=== PATIENT | male | born 1995 | race Caucasian/White ===

== ENCOUNTER 2020-11-06 15:36 | Emergency (ER) | payer SELFPAY ==
[2020-11-08 05:11] LABS: HBSAG SCREEN Negative (Negative); HEP A AB, IGM Negative (Negative); HEP B CORE AB, IGM Negative (Negative); HEP C VIRUS AB <0.1 (0.0-0.9)
[2020-11-08 08:14] LABS: HIV SCREEN 4TH GENERATION WRFX Non Reactive (Non Reactive)
== END 2020-11-06 19:00 | disposition home or self-care (01) ==
LOC: ER1 15:36
PROVIDERS: Emergency Medicine
DX: Z79.891 Long term (current) use of opiate analgesic (principal); S61.235A Puncture wound without foreign body of left ring finger without damage to nail, initial encounter; X58.XXXA Exposure to other specified factors, initial encounter
CPT/HCPCS: 80074; 87389; 99283